=== PATIENT | female | born 1945 | race Caucasian/White ===

== ENCOUNTER 2017-09-21 10:58 | Emergency (ER) | payer MEDICARE ==
[2017-09-21 11:14] VITALS: BP 154/82
--- NOTE | 2017-09-21 12:00 | UC ---
Skin Complaint HPI - HPI Summary HPI Summary: Pt presents with for right hand pain, swelling, and redness. She tells me that about 5 days ago she was baking, but does not remember a specific injury. The next day she developed an open sore in the webbing between her 2nd and 3rd digit. Over the next few days it began to blister and she developed redness in the surrounding tissue. Today the redness and swelling are present, but the sore in question appears to be scabbed over with no blister. She has been putting neosporin on the sore. She denies fever, chills, SOB, recent injury, or recent illness. - History of Current Complaint Chief Complaint: UCWounds Time Seen by Provider: 09/21/17 11:59 Stated Complaint: CUT ON HAND Hx Obtained From: Patient Onset/Duration: Gradual Onset Onset Severity: Moderate Current Severity: Moderate Pain Intensity: 5 Pain Scale Used: 0-10 Numeric - Allergy/Home Medications Allergies/Adverse Reactions: Allergies Allergy/AdvReac Type Severity Reaction Status Date / Time Clarithromycin AdvReac GI Upset Verified 09/21/17 11:14 anesthesia AdvReac Intermediate Nausea And Uncoded 09/21/17 11:14 Vomiting lactose intolerance AdvReac GI Upset Uncoded 09/21/17 11:14 Home Medications: Home Medications Rhinocort Aqua 09/21/17 [History] Review of Systems Constitutional: Negative Skin: Other - Redness and swelling webbing between 2nd and 3rd digit right hand Respiratory: Negative Cardiovascular: Negative Gastrointestinal: Negative All Other Systems Reviewed And Are Negative: Yes PMH/Surg Hx/FS Hx/Imm Hx Previously Healthy: Yes Endocrine History: Hypothyroidism Other History Of: Negative For: HIV, Hepatitis C - Surgical History Surgical History: Yes Surgery Procedure, Year, and Place: Urethral caruncle. hysterectomy - partial, then full later. hemorrhoidectomy. tubal ligation. tonsils. breast biopsy - negative. colon surgery. left and right rotator cuff repair. back fusion. left toe surgery. melanoma removal - Family History Known Family History: Negative: Renal Disease, Blood Disorder - Social History Occupation: Retired Lives: With Family Alcohol Use: Occasionally Alcohol Amount: 2 glasses a month Substance Use Type: None Smoking Status (MU): Never Smoked Tobacco - Immunization History Most Recent Influenza Vaccination: 08/19 Most Recent Tetanus Shot: over 10 years ago Physical Exam Triage Information Reviewed: Yes Appearance: Well-Appearing, Well-Nourished Vital Signs: Initial Vital Signs Temp 98.2 F 09/21/17 11:04 Pulse 88 09/21/17 11:04 Resp 18 09/21/17 11:04 BP 154/82 09/21/17 11:04 Pulse Ox 100 09/21/17 11:04 Vital Signs Reviewed: Yes Respiratory: Positive: Chest non-tender, Lungs clear, Normal breath sounds, No respiratory distress, No accessory muscle use Cardiovascular: Positive: RRR, No Murmur, Pulses Normal Musculoskeletal: Positive: Strength Intact - Right hand and all digits, ROM Intact - Right hand and all digits, Edema @ - Web space of 2nd and 3rd digit extending into 2nd and 3rd digits up to the PIP. Neurological: Positive: Alert Psychological: Positive: Age Appropriate Behavior Skin: Positive: Other - Approx 3mm scab situated in the webbing between the 2nd and 3rd digits of her right hand. Mild erythema extending to the PIP of the 2nd and 3rd digits and just below the MCPs of the 2nd and 3rd digits. There is no drainage, bleeding, weeping, or other discoloration. Course/Dx - Course Course Of Treatment: IMPRESSION: Degenerative changes of the right hand as described above without identification of a subcutaneous foreign body. Cellulitis - Bactrim 10 days - Differential Diagnoses - Skin Complaint Differential Diagnoses: Cellulitis, Eczema, Foreign Body, Local Allergic Reaction, MRSA - Diagnoses Provider Diagnoses: Cellulitis right hand Discharge - Discharge Plan Condition: Stable Disposition: HOME Prescriptions: Sulfamethox/Trimethoprim DS* [Bactrim DS 800/160 TAB*] 1 tab PO BID #20 tab Patient Education Materials: Cellulitis (ED) Referrals: Kasey DESIR,Grisel Xiao [Primary Care Provider] - Additional Instructions: 1) Triple antibiotic ointment once or twice a day applied to the area If you develop fevers, chills, increasing pain, swelling, or redness - please call our office or go to ED. Your blood pressure was high at todays visit. Please see your primary provider within 4 weeks for recheck and re-evaluation.
--- NOTE | 2017-09-21 13:20 | RAD ---
INDICATION: Laceration to right hand between index and middle fingers. Concern for foreign body. COMPARISON: None. TECHNIQUE: 4 views of the right hand were obtained. FINDINGS: The adequately corticated bones are in normal alignment. No significant focal osseous abnormality or fracture is seen. Degenerative changes include narrowing of the distal and proximal interphalangeal joints as well as sclerotic bony remodeling at the right thumb metacarpal trapezium joint. No subcutaneous foreign body is visualized. IMPRESSION: Degenerative changes of the right hand as described above without identification of a subcutaneous foreign body. If the patient's symptoms persist, follow-up imaging is recommended.
== END 2017-09-21 13:35 | disposition home or self-care (01) ==
LOC: UCEAST 10:58
DX: L03.113 Cellulitis of right upper limb (principal); Z72.89 Other problems related to lifestyle
CPT/HCPCS: 99212; G0463

== ENCOUNTER 2017-11-01 09:03 | Emergency (ER) | payer MEDICARE ==
[2017-11-01 11:55] LABS: Urine Appearance Clear; Urine Blood Negative (Negative); Urine Color Yellow; Urine Ketones Negative (Negative); Urine Protein Negative (Negative); Urine Specific Gravity 1.009 (1.010-1.030); Urine Urobilinogen Negative (Negative)
[2017-11-01] MEDS ORDERED: Diazepam TAB(*) 5 MG PO ONE (12:06)
[2017-11-01] MEDS ORDERED: Ketorolac INJ* 60 MG/2 ML VIAL IM ONE (12:06)
--- NOTE | 2017-11-01 13:33 | ED ---
Back Pain - HPI Summary HPI Summary: Pt here w/ Rt low back/SI pain since lifting a lot this week. She and her partner are in the process of moving to [facility] so has been bending, lifting, etc. She has had Rt LBP since yesterday - was not acute at onset but has been getting progressively worse. Exacerbating sx are when she transitions from sitting to standing and vice versa. Had mild incontinence this morning when trying to sit but later admits she has stress incontinence and was bearing down in pain when this happened. Has had control of her bowels/bladder otherwise. Denies numbness, tingling, weakness. Has been trying aleve and ibuprofen with minimal relief. H/o lumbar fusion from L4-S1 . No issues since. - History of Current Complaint Chief Complaint: EDBackInjuryPain Stated Complaint: RT FLANK PAIN Time Seen by Provider: 11/01/17 11:29 Hx Obtained From: Patient, Family/Care Trainer - male partner Pain Intensity: 3 - Allergies/Home Medications Allergies/Adverse Reactions: Allergies Allergy/AdvReac Type Severity Reaction Status Date / Time Clarithromycin AdvReac GI Upset Verified 09/21/17 11:14 anesthesia AdvReac Intermediate Nausea And Uncoded 09/21/17 11:14 Vomiting lactose intolerance AdvReac GI Upset Uncoded 09/21/17 11:14 PMH/Surg Hx/FS Hx/Imm Hx Previously Healthy: Yes Endocrine/Hematology History: Reports: Hx Thyroid Disease Denies: Hx Diabetes Cardiovascular History: Reports: Hx Hypertension - "Whitecoat hypertension." Denies: Hx Congestive Heart Failure, Hx Deep Vein Thrombosis, Hx Myocardial Infarction, Hx Pacemaker/ICD Respiratory History: Reports: Hx Seasonal Allergies - takes daily anti-histamine Denies: Hx Asthma, Hx Chronic Obstructive Pulmonary Disease (COPD), Hx Lung Cancer, Hx Pneumonia, Hx Pulmonary Embolism GI History: Denies: Hx Gall Bladder Disease, Hx Gastrointestinal Bleed, Hx Ulcer, Hx Urosepsis History: Denies: Hx Kidney Stones, Hx Renal Disease Musculoskeletal History: Reports: Hx Back Problems - fusion of L4-S1 Sensory History: Reports: Hx Contacts or Glasses Opthamlomology History: Reports: Hx Contacts or Glasses Neurological History: Denies: Hx Dementia, Hx Migraine, Hx Seizures, Hx Transient Ischemic Attacks (TIA) Psychiatric History: Reports: Hx Depression, Other Psychiatric Issues/Disorders - takes melatonin PRN insomnia Denies: Hx Anxiety, Hx Schizophrenia, Hx Bipolar Disorder - Cancer History Cancer Type, Location and Year: Melanoma - Surgical History Surgery Procedure, Year, and Place: Urethral caruncle. hysterectomy - partial, then full later. hemorrhoidectomy. tubal ligation. tonsils. breast biopsy - negative. colon surgery. left and right rotator cuff repair. back fusion. left toe surgery. melanoma removal Infectious Disease History: No Infectious Disease History: Reports: Hx Clostridium Difficile, Hx Shingles, History Other Infectious Disease - acyclovir for suppression of HSV Denies: Hx Hepatitis, Hx Human Immunodeficiency Virus (HIV), Hx of Known/ Suspected MRSA, Hx Tuberculosis, Hx Known/Suspected VRE, Hx Known/Suspected VRSA , Traveled Outside the [place] in Last 30 Days - Family History Known Family History: Positive: None Negative: Renal Disease, Blood Disorder - Social History Occupation: Retired Lives: With Family Alcohol Use: Occasionally Alcohol Amount: 2 glasses a month Hx Substance Use: No Substance Use Type: Reports: None Hx Tobacco Use: No Smoking Status (MU): Never Smoked Tobacco Review of Systems Constitutional: Negative Negative: Fever, Fatigue Cardiovascular: Negative Negative: Palpitations, Chest Pain Respiratory: Negative Gastrointestinal: Negative Negative: Abdominal Pain, Vomiting, Diarrhea, Nausea Positive: see HPI, flank pain, incontinence - stress incontinence - baseline - s /p HAYLIE. Negative: burning, dysuria, discharge, frequency, urgency Positive: Arthralgia, Myalgia, Decreased ROM Skin: Negative Neurological: Negative Negative: Headache, Weakness, Paresthesia, Numbness, Syncope, Slurred Speech Psychological: Normal All Other Systems Reviewed And Are Negative: Yes Physical Exam Triage Information Reviewed: Yes Vital Signs On Initial Exam: Initial Vitals Temp Pulse Resp BP Pulse Ox 98.5 F 88 18 160/66 97 11/01/17 09:07 11/01/17 09:07 11/01/17 09:07 11/01/17 09:07 11/01/17 09:07 Vital Signs Reviewed: Yes Appearance: Positive: Well-Appearing, Well-Nourished, Pain Distress - mild at rest; moderate w/ movements mentioned in HPI Skin: Positive: Warm, Dry - no erythema, no ecchymosis - old healed scar over lumbar spine Head/Face: Positive: Normal Head/Face Inspection Eyes: Positive: EOMI, Conjunctiva Clear ENT: Positive: Hearing grossly normal Respiratory/Lung Sounds: Positive: Breath Sounds Present Cardiovascular: Positive: Pulses are Symmetrical in both Upper and Lower Extremities. Negative: Leg Edema Left, Leg Edema Right Abdomen Description: Positive: Nontender, Soft Musculoskeletal: Positive: Strength/ROM Intact - LE's + 5/5 strength and equal B /L, Limited @ - lumbar spine movements limited d/t pain - she is seated at time of exam and is most comfortable here, Pain @ - Rt SI TTP; Rt QL is TTP Neurological: Positive: Normal, Sensory/Motor Intact, Alert, Oriented to Person Place, Time, CN Intact II-III, Reflexes Intact, Other - no saddle paresthesia Psychiatric: Positive: Normal - [place] Coma Scale Coma Scale Total: 15 Diagnostics - Vital Signs Vital Signs Temp Pulse Resp BP Pulse Ox 11/01/17 12:44 17 11/01/17 09:07 98.5 F 88 18 160/66 97 - Laboratory Lab Results: Lab Results 11/01/17 Range/Units 11:50 Urine Color Yellow Urine Appearance Clear Urine pH 7.0 (5-9) Ur Specific [place] 1.009 L (1.010-1.030) Urine Protein Negative (Negative) Urine Ketones Negative (Negative) Urine Blood Negative (Negative) Urine Nitrate Negative (Negative) Urine Bilirubin Negative (Negative) Urine Urobilinogen Negative (Negative) Ur Leukocyte Esterase Negative (Negative) Urine Glucose Negative (Negative) Diagnostic Studies Comment: Lumbar XR: (wet read) DDD - hardware in place - no acute displacement or fx observed. SI XR: B/L joints w/ degenerative changes - no gross displacement or fx Lab Statement: Any lab studies that have been ordered have been reviewed, and results considered in the medical decision making process. Re-Evaluation - Re-Evaluation First Eval Change: Improved Back Pain Course/Dx - Course Course Of Treatment: Pt appear to be having an arthritis flair up along w/ muscle spasm in Rt lumbar region. She has findings of arthritis in her SI joints B/L and hardware observed on XR. She has improvement of pain s/p toradol w/ valium. Will d/c w/ meds for relief but needs f/u w/ PCP in the event she does not continue to improve or if she needs surgical consult. Does not require emergent MRI or surgical consult today. - Diagnoses Provider Diagnoses: Lumbar radiculopathy, SI joint arthritis Discharge - Discharge Plan Condition: Stable Disposition: HOME Prescriptions: Diazepam TAB(*) [Valium TAB(*)] 5 mg PO TID PRN #15 tab MDD 3 PRN Reason: Pain predniSONE TAB* [Deltasone TAB*] 40 mg PO DAILY #10 tab Patient Education Materials: Low Back Strain (ED), Sacroiliitis (ED) Referrals: Kasey DESIR,Grisel Xiao [Primary Care Provider] - Additional Instructions: You may alternate ice with heat to affected area of pain - gentle stretches without rotation Continue Aleve - you may take 500mg every 12 hours with food For breakthrough pain, you may take acetaminophen (Tylenol extra strength) and valium (a muscle relaxer) Stay hydrated Follow-up with PCP this week - call Friday to schedule an appointment *If you develop fever, chills, numbness, tingling, weakness and/or change in bowel/bladder habits, return to ED
--- NOTE | 2017-11-01 14:06 | RAD ---
Indication: Low back pain with right greater than left radiation Comparison: None. Technique: AP and oblique views sacroiliac joints. A total of 3 images were acquired. Report: The visualized bones are well-corticated and properly aligned. There is no radiographic evidence of an acute fracture or dislocation. Mild degenerative changes of the bilateral sacroiliac joints include mild sclerotic change of the articulating services. The joint spaces appear to be preserved.. Soft tissues are grossly normal within the capabilities of plain radiography. IMPRESSION: Mild degenerative changes of the bilateral sacroiliac joints. If the patient's symptoms persist, follow-up imaging is recommended.
--- NOTE | 2017-11-01 14:08 | RAD ---
INDICATION: Back pain. COMPARISON: None. TECHNIQUE: 3 views of the lumbar spine were obtained. FINDINGS: The patient is status post laminectomy, transpedicular screw fixation of L4, L5 and S1 with posterior rods and fixators. The spinal hardware is anatomically aligned. There is a small degree of grade 1 anterolisthesis of L3 over L4. There is mild loss of intervertebral disc height at L3/L4. More superiorly intervertebral disc heights are maintained. IMPRESSION: Chronic and postsurgical changes described above.
[2017-11-01 14:44] VITALS: BP 154/67
== END 2017-11-01 14:35 | disposition home or self-care (01) ==
LOC: ED 09:03
DX: M54.16 Radiculopathy, lumbar region (principal); M19.91 Primary osteoarthritis, unspecified site; M54.5 Low back pain; Z86.79 Personal history of other diseases of the circulatory system
CPT/HCPCS: 72100; 72202; 81003; 96372; 99282; A9270-GY; J1885

== ENCOUNTER 2019-05-02 10:22 | Emergency (ER) | payer MEDICARE ==
[2019-05-02 10:38] VITALS: BP 143/77
--- NOTE | 2019-05-02 11:11 | UC ---
Lower Extremity/Ankle HPI - HPI Summary HPI Summary: R ankle pain after tripping in hole one week ago. Has been walking on it. She was concerned when swelling did not resolve. denies tingling/numbness. - History of Current Complaint Chief Complaint: UCLowerExtremity Stated Complaint: ANKLE INJURY Time Seen by Provider: 05/02/19 10:52 Hx Obtained From: Patient Pain Intensity: 2 Pain Scale Used: 0-10 Numeric Aggravating Factor(s): Ambulation Alleviating Factor(s): Rest, Elevation - Allergies/Home Medications Allergies/Adverse Reactions: Allergies Allergy/AdvReac Type Severity Reaction Status Date / Time clarithromycin Allergy GI Upset Verified 05/02/19 10:38 anesthesia AdvReac Intermediate Nausea And Uncoded 05/02/19 10:38 Vomiting lactose intolerance AdvReac GI Upset Uncoded 05/02/19 10:38 Home Medications: Home Medications Calcium Carb, Citrate/Vit D3 [Calcium+D3 Gradual Releas] 1 tab PO DAILY [History Confirmed 05/02/19] Ibuprofen TAB* [Advil TAB*] 400 mg PO Q6H PRN 05/02/19 [History Confirmed ] Levothyroxine TAB* [Synthroid TAB*] 75 mcg PO 0800 05/02/19 [History Confirmed 05/02/19] Loratadine 10 mg PO DAILY 05/02/19 [History Confirmed 05/02/19] Melatonin/Pyridoxine HCl (B6) [Melatonin] 1 tab PO BEDTIME 05/02/19 [History Confirmed 05/02/19] Naproxen Sodium [Naproxen 220 mg] 220 mg PO BID PRN 05/02/19 [History Confirmed 05/02/19] PMH/Surg Hx/FS Hx/Imm Hx Previously Healthy: Yes Endocrine History: Thyroid Disease Other History Of: Negative For: HIV, Hepatitis C - Surgical History Surgical History: Yes Surgery Procedure, Year, and Place: Colectomy, Urethral caruncle. hysterectomy - partial, then full later. hemorrhoidectomy. tubal ligation. tonsils. breast biopsy - negative. colon surgery. left and right rotator cuff repair. back fusion. left toe surgery. melanoma removal - Family History Known Family History: Positive: None Negative: Renal Disease, Blood Disorder - Social History Alcohol Use: Rare Alcohol Amount: 2 glasses a month Substance Use Type: None Smoking Status (MU): Never Smoked Tobacco - Immunization History Most Recent Influenza Vaccination: 08/19 Most Recent Tetanus Shot: over 10 years ago Review of Systems All Other Systems Reviewed And Are Negative: Yes Constitutional: Negative: Fever Skin: Negative: Rash, Bruising Musculoskeletal: Positive: Arthralgia - R ankle, Edema - R ankle Neurological: Negative: Weakness, Paresthesia, Numbness Physical Exam Triage Information Reviewed: Yes Appearance: Well-Appearing Vital Signs: Initial Vital Signs Temp 98.7 F 05/02/19 10:32 Pulse 77 05/02/19 10:32 Resp 16 05/02/19 10:32 BP 143/77 05/02/19 10:32 Pulse Ox 95 05/02/19 10:32 Vital Signs Reviewed: Yes Cardiovascular: Positive: Brisk Capillary Refill - R toes Musculoskeletal: Positive: ROM Intact - R ankle but w/ pain, Edema @ - R ankle Neurological: Positive: Alert, Muscle Tone Normal. Negative: Other: - neg [place] Skin: Negative: Other - no bruising noted. Diagnostics - Radiology No standard instances Radiology Interpretation Completed By: Radiologist Summary of Radiographic Findings: IMPRESSION: Soft tissue swelling laterally without evidence of fracture. Lower Extremity Course/Dx - Course Course Of Treatment: R ankle pain x1 wk after landing wrong in a hole. Swelling worsened and pt came in today. on imaging no fx and on exam significant swelling but no bruising. vitals good. will use TIGRE and Gel splint for support. nsaids for pain/inflammation. - Differential Dx/Diagnosis Differential Diagnosis/HQI/PQRI: Fracture (Closed), Sprain, Strain Provider Diagnosis: Right ankle sprain Discharge - Sign-Out/Discharge Documenting (check all that apply): Patient Departure All imaging exams completed and their final reports reviewed: Yes - Discharge Plan Condition: Good Disposition: HOME Patient Education Materials: Ankle Sprain (DC) Referrals: Kasey DESIR,Grisel Xiao [Primary Care Provider] - Additional Instructions: follow up with primary care if not improving - Billing Disposition and Condition Condition: GOOD Disposition: Home - Attestation Statements Provider Attestation: I was available for consult. This patient was seen by the BRIELLE. The patient was not presented to, seen by, or examined by me. -Donovan
== END 2019-05-02 12:20 | disposition home or self-care (01) ==
LOC: UCEAST 10:22
DX: S93.401A Sprain of unspecified ligament of right ankle, initial encounter (principal); W18.30XA Fall on same level, unspecified, initial encounter; Y92.9 Unspecified place or not applicable; E07.9 Disorder of thyroid, unspecified
CPT/HCPCS: 99213; G0463

== ENCOUNTER 2019-06-19 17:26 | Emergency (ER) | payer MEDICARE ==
[2019-06-19 17:38] VITALS: BP 155/84
--- NOTE | 2019-06-19 18:00 | UC ---
Complaint Female HPI - HPI Summary HPI Summary: 3 days of worsening llq pain/cramping---decreased po intake, no fevers- - History Of Current Complaint Chief Complaint: UCGU Stated Complaint: fREQUENT URINATION Time Seen by Provider: 06/19/19 17:29 Hx Obtained From: Patient ?: No Onset/Duration: Gradual Onset, Lasting Days - 3, Worse Since - today Timing: Constant Pain Intensity: 3 Pain Scale Used: 0-10 Numeric Character: Cramping Aggravating Factor(s): Nothing Alleviating Factor(s): Nothing Associated Signs And Symptoms: Positive: Back Pain - Allergies/Home Medications Allergies/Adverse Reactions: Allergies Allergy/AdvReac Type Severity Reaction Status Date / Time clarithromycin Allergy GI Upset Verified 06/19/19 17:38 anesthesia AdvReac Intermediate Nausea And Uncoded 06/19/19 17:38 Vomiting lactose intolerance AdvReac GI Upset Uncoded 06/19/19 17:38 Home Medications: Home Medications Acetaminophen [Mapap] 1,000 mg PO ONCE PRN 06/19/19 [History Confirmed 06/19/19] Budesonide NASAL (NF) [Rhinocort Aqua (NF)] 1 spray INH DAILY 06/19/19 [History Confirmed 06/19/19] Cetirizine HCl [All Day Allergy] 1 tab PO DAILY 06/19/19 [History Confirmed ] Sodium Chloride [Saline Nasal [place]] 1 spray INH DAILY 06/19/19 [History Confirmed 06/19/19] PMH/Surg Hx/FS Hx/Imm Hx Previously Healthy: No Endocrine History: Hypothyroidism Other History Of: Negative For: HIV, Hepatitis C - Surgical History Surgical History: Yes Surgery Procedure, Year, and Place: Colectomy, Urethral caruncle. hysterectomy - partial, then full later. hemorrhoidectomy. tubal ligation. tonsils. breast biopsy - negative. colon surgery. left and right rotator cuff repair. back fusion. left toe surgery. melanoma removal. trigger finger - Family History Known Family History: Positive: None Negative: Renal Disease, Blood Disorder - Social History Occupation: Retired Lives: With Family Alcohol Use: Rare Alcohol Amount: 2 glasses a month Substance Use Type: None Smoking Status (MU): Never Smoked Tobacco - Immunization History Most Recent Influenza Vaccination: 08/19 Most Recent Tetanus Shot: over 10 years ago Review of Systems All Other Systems Reviewed And Are Negative: Yes Constitutional: Positive: Chills, Fatigue Skin: Positive: Negative Eyes: Positive: Negative ENT: Positive: Negative Respiratory: Positive: Negative Cardiovascular: Positive: Negative Gastrointestinal: Positive: Abdominal Pain Genitourinary: Positive: Negative Motor: Positive: Negative Neurovascular: Positive: Negative Musculoskeletal: Positive: Negative Neurological: Positive: Negative Psychological: Positive: Negative Is Patient Immunocompromised?: No Physical Exam Triage Information Reviewed: Yes Appearance: Well-Appearing, No Pain Distress, Well-Nourished Vital Signs: Initial Vital Signs Temp 98.4 F 06/19/19 17:30 Pulse 75 06/19/19 17:30 Resp 18 06/19/19 17:30 BP 155/84 06/19/19 17:30 Pulse Ox 97 06/19/19 17:30 Vital Signs Reviewed: Yes Eye Exam: Normal Eyes: Positive: Conjunctiva Clear ENT Exam: Normal ENT: Positive: Normal ENT inspection, Hearing grossly normal. Negative: Nasal congestion, Trismus, Muffled voice, Hoarse voice Dental Exam: Normal Neck exam: Normal Neck: Positive: Supple, Nontender Respiratory Exam: Normal Respiratory: Positive: Chest non-tender, Lungs clear, Normal breath sounds, No respiratory distress, No accessory muscle use Cardiovascular Exam: Normal Cardiovascular: Positive: RRR, No Murmur, Pulses Normal, Brisk Capillary Refill Abdominal Exam: Other Abdomen Description: Positive: No Organomegaly, Soft, Other: - llq pain. Negative: Nontender, Distended, Guarding, Hernia @ Bowel Sounds: Positive: Present Musculoskeletal Exam: Normal Musculoskeletal: Positive: Strength Intact, ROM Intact, No Edema Neurological Exam: Normal Neurological: Positive: Alert, Muscle Tone Normal Psychological Exam: Normal Skin Exam: Normal Complaint Female Dx - Course Course Of Treatment: npo to [facility] [place] with driving for assessment of abdomen pain - Differential Dx/Diagnosis Provider Diagnosis: LLQ abdominal pain Discharge - Sign-Out/Discharge Documenting (check all that apply): Patient Departure All imaging exams completed and their final reports reviewed: No Studies - Discharge Plan Condition: Stable Disposition: HOME-RECOMMEND TO ED Patient Education Materials: Acute Abdominal Pain (DC) Referrals: Kasey DESIR,Grisel Xiao [Primary Care Provider] - Additional Instructions: Nothing to eat or drink please go to emergency department for further care - Billing Disposition and Condition Condition: STABLE Disposition: Home-Recommend to ED
== END 2019-06-19 18:18 | disposition home health service (06) ==
LOC: UCEAST 17:26
DX: R10.32 Left lower quadrant pain (principal); E03.9 Hypothyroidism, unspecified
CPT/HCPCS: 81003; 99212; G0463

== ENCOUNTER 2019-06-19 18:35 | Emergency (ER) | payer MEDICARE ==
--- NOTE | 2019-06-19 19:10 | ED ---
GI/ HPI - HPI Summary HPI Summary: 73 year old female with a history of diverticulosis and diverticulitis presents with LLQ pain and bloating. Pain and bloating began 3 days ago. Patient has some lower back pain. Pain is achy and diffuse to the LLQ. Lying down makes it better. Patient had a large meal before the pain started. Patient had a large section of her colon removed for diverticular complications 12 years ago. Symptoms are similar to previous diverticular problems. Patient endorses fevers , chills and night sweats for the last 2 nights. Patient has loss of appetite. No nausea or vomiting. Patient has had constipation since yesterday. Increased frequency of urination and suprapubic pressure with urination. No trauma. - History of Current Complaint Chief Complaint: EDAbdPain Time Seen by Provider: 06/19/19 18:51 Stated Complaint: STOMACH PAIN/BLOATING PER PT Pain Intensity: 3 - Allergy/Home Medications Allergies/Adverse Reactions: Allergies Allergy/AdvReac Type Severity Reaction Status Date / Time clarithromycin Allergy GI Upset Verified 06/19/19 18:39 anesthesia AdvReac Intermediate Nausea And Uncoded 06/19/19 18:39 Vomiting lactose intolerance AdvReac GI Upset Uncoded 06/19/19 18:39 PMH/Surg Hx/FS Hx/Imm Hx Endocrine/Hematology History: Reports: Hx Thyroid Disease Denies: Hx Diabetes Cardiovascular History: Reports: Hx Hypertension Denies: Hx Congestive Heart Failure, Hx Deep Vein Thrombosis, Hx Myocardial Infarction, Hx Pacemaker/ICD Respiratory History: Reports: Hx Seasonal Allergies - takes daily anti-histamine Denies: Hx Asthma, Hx Chronic Obstructive Pulmonary Disease (COPD), Hx Lung Cancer, Hx Pneumonia, Hx Pulmonary Embolism GI History: Denies: Hx Gall Bladder Disease, Hx Gastrointestinal Bleed, Hx Ulcer, Hx Urosepsis History: Denies: Hx Kidney Stones, Hx Renal Disease Musculoskeletal History: Reports: Hx Back Problems - fusion of L4-S1 Sensory History: Reports: Hx Contacts or Glasses Opthamlomology History: Reports: Hx Contacts or Glasses Neurological History: Denies: Hx Dementia, Hx Migraine, Hx Seizures, Hx Transient Ischemic Attacks (TIA) Psychiatric History: Reports: Hx Depression, Other Psychiatric Issues/Disorders - takes melatonin PRN insomnia Denies: Hx Anxiety, Hx Schizophrenia, Hx Bipolar Disorder - Cancer History Cancer Type, Location and Year: Melanoma - Surgical History Surgery Procedure, Year, and Place: Colectomy, Urethral caruncle. hysterectomy - partial, then full later. hemorrhoidectomy. tubal ligation. tonsils. breast biopsy - negative. colon surgery. left and right rotator cuff repair. back fusion. left toe surgery. melanoma removal. trigger finger Infectious Disease History: No Infectious Disease History: Reports: Hx Clostridium Difficile, Hx Shingles, History Other Infectious Disease - herpes Denies: Hx Hepatitis, Hx Human Immunodeficiency Virus (HIV), Hx of Known/ Suspected MRSA, Hx Tuberculosis, Hx Known/Suspected VRE, Hx Known/Suspected VRSA , Traveled Outside the [place] in Last 30 Days - Family History Known Family History: Positive: None Negative: Renal Disease, Blood Disorder - Social History Alcohol Use: Rare Alcohol Amount: 2 glasses a month Hx Substance Use: No Substance Use Type: Reports: None Hx Tobacco Use: No Smoking Status (MU): Never Smoked Tobacco Review of Systems Negative: Fever Negative: Chest Pain Negative: Shortness Of Breath Positive: Abdominal Pain, Nausea. Negative: Vomiting, Diarrhea All Other Systems Reviewed And Are Negative: Yes Physical Exam Triage Information Reviewed: Yes Vital Signs On Initial Exam: Initial Vitals Temp Pulse Resp BP Pulse Ox 98.4 F 72 18 175/92 97 06/19/19 18:37 06/19/19 18:37 06/19/19 18:37 06/19/19 18:37 06/19/19 18:37 Vital Signs Reviewed: Yes Appearance: Positive: Well-Appearing Skin: Positive: Warm, Dry Head/Face: Positive: Normal Head/Face Inspection Eyes: Positive: Normal, Conjunctiva Clear ENT: Positive: Pharynx normal Respiratory/Lung Sounds: Positive: Clear to Auscultation, Breath Sounds Present Cardiovascular: Positive: Normal, RRR Abdomen Description: Positive: Soft, Other: - tenderness in LLQ Bowel Sounds: Positive: Present Musculoskeletal: Positive: Normal Neurological: Positive: Normal Psychiatric: Positive: Normal Diagnostics - Vital Signs Vital Signs Temp Pulse Resp BP Pulse Ox 06/19/19 18:37 98.4 F 72 18 175/92 97 - Laboratory Result Diagrams: 06/19/19 19:14 06/19/19 19:14 Lab Statement: Any lab studies that have been ordered have been reviewed, and results considered in the medical decision making process. - CT abd CT Interpretation Completed By: Radiologist Summary of CT Findings: IMPRESSION: 1. There is mild wall thickening in the cecum, cannot exclude mild proximal. colitis. 2. No other acute CT pathology of the abdomen or pelvis. GIGU Course/Dx - Course Course Of Treatment: 73 year old female with a history of diverticulosis and diverticulitis presents with LLQ pain and bloating. Pain and bloating began 3 days ago. Patient has some lower back pain. Pain is achy and diffuse to the LLQ. Lying down makes it better. Patient had a large meal before the pain started. Patient had a large section of her colon removed for diverticular complications 12 years ago. Symptoms are similar to previous diverticular problems. Patient endorses fevers, chills and night sweats for the last 2 nights. Patient has loss of appetite. No nausea or vomiting. Patient has had constipation since yesterday. Increased frequency of urination and suprapubic pressure with urination. No trauma. No CVA tenderness on exam. Normoactive bowel sounds in all four quadrants. Tenderness to deep palpation of LLQ. WBC 7, CRP normal, urine showed no infection. Electrolytes normal.CT shows possible colitis. will treat with augmentin. told follow up with primary. patient understand and agrees with plan. - Diagnoses Differential Diagnoses - Female: Colitis, Diverticulitis, Gastroenteritis (Viral ), Gastroenteritis (Bacterial) Provider Diagnoses: Abdominal pain Discharge - Sign-Out/Discharge Documenting (check all that apply): Patient Departure Patient Received Moderate/Deep Sedation with Procedure: No - Discharge Plan Condition: Good Disposition: HOME Prescriptions: Amoxicillin/Clavulanate TAB* [Augmentin TAB 875*] 875 mg PO BID #14 tab Patient Education Materials: Colitis (ED) Referrals: Kasey DESIR,Grisel Xiao [Primary Care Provider] - Additional Instructions: if no improvement or symptoms worsening take augmentin twice a day for 7 days Drink small amounts of fluid as tolerated When able to eat follow BRAT diet: Bananas, rice, applesauce, toast Take Tylenol for pain as needed every 6 hours Follow up with primary within 5 days Return to ED if develop any new or worsening symptoms - Billing Disposition and Condition Condition: GOOD Disposition: Home
[2019-06-19 19:20] LABS: ABS Lymphocytes 3.1 10^3/ul (1.0-4.8); ABS Monocytes 0.5 10^3/ul (0-0.8); ABS Neutrophils 3.4 10^3/ul (1.5-7.7); Hematocrit 41 % (35-47); Hemoglobin 14.4 g/dL (12.0-16.0); Lymphocyte % 44.1 %; Mean Corpuscular HGB Conc 35 g/dL (31-36); Mean Corpuscular Hemoglobin 33 pg (27-31); Mean Corpuscular Volume 95 fL (80-97); Mean Platelet Volume 7.8 fL (7.4-10.4); Nucleated Red Blood Cells % 0.1; Platelet Count 239 10^3/uL (150-450); Red Blood Count 4.34 10^6 /uL (3.70-4.87); Red Cell Distribution Width 12 % (10-15)
[2019-06-19] MEDS ORDERED: NS 0.9% 1000 ML** 1,000 ML IV ONE (19:23)
[2019-06-19 19:36] LABS: ALT 15 U/L (7-52); AST 21 U/L (13-39); Albumin 4.6 g/dL (3.2-5.2); Alkaline Phosphatase 60 U/L (34-104); Anion Gap 6 mmol/L (2-11); BUN/Creatinine Ratio 20.3 (8-20); Blood Urea Nitrogen 16 mg/dL (6-24); C Reactive Protein < 1.00 mg/L (<8.01); CO2 Carbon Dioxide 31 mmol/L (22-32); Calcium 9.8 mg/dL (8.6-10.3); Chloride 102 mmol/L (101-111); EGFR African American 86.8 (>60); EGFR Non-African American 71.7 (>60); Globulin 2.3 g/dL (2-4); Glucose 92 mg/dL (70-100); Potassium 3.7 mmol/L (3.5-5.0); Sodium 139 mmol/L (135-145); Total Protein 6.9 g/dL (6.4-8.9)
[2019-06-19 19:43] LABS: Urine Appearance Clear; Urine Bilirubin Negative (Negative); Urine Blood Negative (Negative); Urine Color Yellow; Urine Glucose Negative (Negative); Urine Ketones Negative (Negative); Urine Nitrite Negative (Negative); Urine Protein Negative (Negative); Urine Specific Gravity 1.008 (1.010-1.030); Urine Urobilinogen Negative (Negative)
[2019-06-19] MEDS ORDERED: Iohexol 300* (CONTRAST) 10 ML SDV IV ONE (20:02)
[2019-06-19 23:01] VITALS: BP 169/77
== END 2019-06-19 23:03 | disposition home or self-care (01) ==
LOC: ED 18:35
DX: R10.32 Left lower quadrant pain (principal); I10 Essential (primary) hypertension; Z88.4 Allergy status to anesthetic agent; Z88.1 Allergy status to other antibiotic agents; E03.9 Hypothyroidism, unspecified
CPT/HCPCS: 36415; 74177; 80053; 81003; 83605; 83690; 85025; 86140; 96360; 99212; 99284; G0463; Q9967